=== PATIENT | male | born 1990 | race Caucasian/White ===

== ENCOUNTER 2024-09-11 04:07 | Emergency (ER) | payer BC, SELFPAY ==
[2024-09-11 04:12] VITALS: BMI 44.3
[2024-09-11 04:25] VITALS: BP 160/107; PULSE 89; RESP 20; TEMP 36.8; O2SAT 95
--- NOTE | 2024-09-11 04:26 | XR_ITS ---
Examination: Toes, left foot first digit 3 views Technique: Toes AP oblique lateral 3 views left foot first digit Date and time of exam: September 11, 2024 at 0449 hours INDICATIONS: Injury to the foot today, foot pain FINDINGS: Adequate bone density No acute fracture No dislocation IMPRESSION: No acute fracture
[2024-09-11] MEDS: oxyCODONE/APAP 5/325 TABLET 1 TAB PO (04:51)
--- NOTE | 2024-09-11 05:52 | PD.EDRME ---
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 Patient has broken that toe twice in the past. Chief Complaint: Ankle/Foot Injury Time Seen by Provider: 09/11/24 04:23 Vital signs: Vital Signs Temperature 98.2 F 09/11/24 04:25 Pulse Rate 89 09/11/24 04:25 Respiratory Rate 20 09/11/24 04:25 Blood Pressure 160/107 H 09/11/24 04:25 Pulse Oximetry (%) 95 09/11/24 04:25 Oxygen Delivery Method Room Air 09/11/24 04:25 Vital signs reviewed by provider: Yes
--- NOTE | 2024-09-11 06:26 | EDNOTE_ITS ---
Lower Extremity Injury RME/HPI General Chief Complaint: Ankle/Foot Injury Stated Complaint: LT FOOT PAIN Time Seen by Provider: 09/11/24 04:23 Arrival date/time: 09/11/24 04:07 Limitations: no limitations RME / HPI RME / HPI Narrative: 09/11/24 04:07 34M with history of HTN presents to ED with L big toe/foot pain after he accidentally injured it while dealing with an aggressive patient. Patient has broken that toe twice in the past. 09/11/24 06:26 34-year-old male with past medical history of hypertension presents for evaluation of left great toe pain following an injury at work that occurred approximately 12 hours prior to evaluation. 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 Patient endorses sharp, nonradiating left foot pain in the interspace between his great toe and left foot first digit. Patient notes 2 prior fractures of his left great toe metatarsal approximately 1 year ago. Patient denies prior surgery on his left foot and states his previous injuries healed well with conservative management in an orthopedic boot. Patient denies head trauma, LOC, numbness, weakness, tingling, swelling, ecchymosis. Patient denies additional injury. Patient was ambulatory immediately following the incident. Johny Gallegos PA-C. MD complaint: foot injury Onset (ago): hour(s) Injury: Left: foot and toes (Left great toe.) Type of Injury: blunt Place: work Relieving factors: nothing Exacerbating factors: nothing Context: fall Associated symptoms: ambulatory Other symptoms: none Related Data Home Medications ?Medication ?Instructions ?Recorded ?Confirmed albuterol sulfate 90 mcg/actuation 2 puff inhalation Q ID PRN sob 08/16/20 10/13/23 aerosol inhaler hydrochlorothiazide 12.5 mg capsule 12.5 mg PO QDAY 10/13/23 omeprazole magnesium 20 mg 20 mg PO QDAY PRN Acid Refl ux 10/13/23 10/13/23 tablet,delayed release (Prilosec OTC) Previous Rx's ?Medication ?Instructions ?Recorded losartan 25 mg tablet 50 mg (2 x 25 mg) PO BID #60 tabs 10/16/23 metoprolol succinate 25 mg 50 mg (2 x 25 mg) PO QDAY # 30 tabs 10/16/23 tablet,extended release 24 hr hydrocodone 5 mg-acetaminophen 325 1 tab PO Q8H PRN pa in #10 tabs 10/31/23 mg tablet Allergies Allergy/AdvReac Type Severity Reaction Status Date / Time Penicillins Allergy Intermediate hives Verified 09/11/24 04:12 amoxicillin Allergy Hives Verified 09/11/24 04:12 Review of Systems Constitutional Constitutional: Denies body ache(s), Denies chills, Denies fever(s), Denies frequent falls and Denies headache(s) Eyes Eyes: Denies blurry vision and Denies change in vision ENT Ears, Nose, Mouth, and Throat: Denies otalgia, Denies headache(s), Denies neck pain and Denies nose pain Cardiovascular Cardiovascular: Denies chest pain, Denies dyspnea and Denies leg edema Respiratory Respiratory: Denies cough, Denies dyspnea and Denies wheezing Gastrointestinal Gastrointestinal: Denies abdominal pain, Denies nausea and Denies vomiting Genitourinary Genitourinary: Denies dysuria and Denies hematuria Musculoskeletal Musculoskeletal: Reports abnormal gait, Reports arthralgias (Left great toe.), Denies back pain, Denies deformity, Denies neck pain, Denies numbness, Denies stiffness and Denies tingling Integumentary/Breasts Skin/Breast: Denies lesions and Denies rash Neurologic Neurologic: Reports abnormal gait, Denies frequent falls, Denies headache(s), Denies numbness and Denies tingling Allergic/Immunologic Allergic/Immunologic: Denies wheezing Past Medical History Past Medical History NEUROLOGIC: Negative Neurological Disorders CARDIAC: Positive Cardiac Disorders and Hypertension; Negative Congestive Heart Failure RESPIRATORY: Positive Asthma; Negative Chronic Obstructive Pulmonary Disease (COPD) GASTROINTESTINAL: Positive Pancreatitis; Negative Gastrointestinal Disorders, Hepatitis, Colorectal Cancer or Gastroesophageal Reflux Disease GENITOURINARY: Negative Genitourinary Disorders, Renal Disease or Prostate Cancer REPRODUCTIVE: Negative Breast Cancer or Testicular Cancer MUSCULOSKELETAL: Negative Musculoskeletal Disorders or Bone Cancer ENDOCRINE: Negative Endocrine Disorders, Diabetes Mellitus Type 1 or Diabetes Mellitus Type 2 HEMATOLOGIC: Negative Blood Disorders or Sickle Cell Disease OTHER HISTORY: Negative Autoimmune Disease, Blood Transfusions, Anesthesia Reactions, Organ Transplant, MRSA, VRSA, Vancomycin-Resistant Enterococci, Human Immunodeficiency Virus (HIV), Chicken Pox, Measles, Mumps, Rubella (Japanese Measles), Pertussis, Clostridium Difficile, Cancer, Breast Cancer, Cervical Cancer, Colorectal Cancer, Lung Cancer, Prostate Cancer or Testicular Cancer Family History FAMILY HISTORY: Positive Family Cancer; Negative Family Psychiatric Problems, Family Respiratory Disorders, Family Cardiac Disorders, Family Gastrointestinal Problems, Family Surgery or Family Anesthesia Reaction Surgical History SURGICAL: Positive Abdominal Surgery; Negative Cardiac Surgery, Endocrine Surgery, Ear Surgery, Nephrectomy, Joint Replacement, Neurologic Surgery, Vasectomy or Organ Transplant Social History SMOKING STATUS: Current every day smoker SECOND HAND EXPOSURE: No ED Exam General Limitations: Present no limitations General appearance: Present alert and in no apparent distress Head Head exam: Present atraumatic and normocephalic Eye Eye exam: Present normal appearance and EOMI ENT ENT exam: Present normal oropharynx and mucous membranes moist Neck Neck exam: Present normal inspection and full ROM Chest Chest inspection: Present normal inspection and symmetric chest wall rise Respiratory Respiratory exam: Absent respiratory distress or wheezes Cardiovascular Cardiovascular exam: Present regular rate and +S1 Abdominal Exam Abdominal exam: Present soft; Absent distention Extremities Exam Extremities exam: Present normal inspection and full ROM; Absent tenderness Expanded Lower Extremity Exam Lower leg exam: Present normal inspection and full ROM Ankle exam: Present normal inspection and full ROM Foot/toe exam: Present normal inspection, full ROM, tenderness and swelling Gait: observed and normal Back Exam Back exam: Present normal inspection; Absent full ROM Neurological Exam Neurological exam: Present alert and normal gait Psychiatric Psychiatric exam: Present normal affect Skin Skin exam: Present warm, dry and intact Course Quality Measures none Orders Category Date Time Status XR toe LT min 2V Stat Exams 09/11/24 04:26 Taken HYDROcodone*/APAP 7.5/325 [[place] 7.5/325] Med 09/11/24 04:26 Discontinued 1 tab PO X1 ONE HYDROcodone/APAP 10/325 [[place] 10/325] Med 09/11/24 07:03 Discontinued 1 tab PO X1 ONE Ibuprofen Tab [Motrin Tab] Med 09/11/24 07:03 Discontinued 800 mg PO X1 ONE Ketorolac Inj [Toradol Inj] Med 09/11/24 06:52 Discontinued 30 mg IM X1 ONE oxyCODONE/APAP 5/325 [Percocet 5/325] Med 09/11/24 04:29 Discontinued 1 tab PO X1 ONE Vital Signs Vital signs: Vital Signs Temperature 98.2 F 09/11/24 04:25 Pulse Rate 89 09/11/24 04:25 Respiratory Rate 20 09/11/24 04:25 Blood Pressure 160/107 H 09/11/24 04:25 Pulse Oximetry (%) 95 09/11/24 04:25 Oxygen Delivery Method Room Air 09/11/24 04:25 Pulse ox 95% on room air, within normal limits. Extremity Injury, Lower MDM Narrative MDM Narrative:: 34-year-old male presents for evaluation of left great toe pain following an injury at work. Patient's had multiple fractures of his left great toe which healed with conservative treatment. No gross neurovascular changes. Preliminary x-ray read shows no acute fracture or dislocation. Patient's pain somewhat improved following analgesics in department. Advised patient to rest, elevate, ice for up to 15 minutes at a time and follow-up with primary care within the next week for reevaluation. Advised patient to follow-up with outpatient Ortho if his symptoms do not improve within the next several days. Patient stable at time of discharge. Patient data External records reviewed:: [facility] previous records Clinical information provided by:: patient Social determinants that could affect healthcare access:: none Patient has the following chronic illnesses:: Hypertension. How is presenting disease/condition affected by chronic disease/condition?: uneffected by Evaluation data The following diagnostics were reviewed and interpreted by me:: radiology exam(s) Lab and/or radiology exams considered but not ordered:: Considered not ordered. Interpretation Summary: Left foot x-ray with bony calcification at first metatarsal. No acute fracture or dislocation. Medications / Prescriptions Medications or Prescriptions considered but not ordered:: Rx given. Medication administrations:: Medication Administration History Discontinued Medications Hydrocodone Bitart/Acetaminophen (Hydrocodone/Apap 7.5/325 Tablet) 1 tab PO X1 ONE Stop: 09/11/24 04:27 Last Admin: 09/11/24 04:42 Dose: Not Given Documented By: Non-Admin Reason: Cancelled by Provider Hydrocodone Bitart/Acetaminophen (Hydrocodone/Apap 10/325 Tab) 1 tab PO X1 ONE Stop: 09/11/24 07:04 Ibuprofen (Ibuprofen Tab 400 Mg Tablet) 800 mg PO X1 ONE Stop: 09/11/24 07:04 Ketorolac Tromethamine (Ketorolac Inj 60 Mg/2 Ml Vial) 30 mg IM X1 ONE Stop: 09/11/24 06:53 Last Admin: 09/11/24 07:03 Dose: Not Given Documented By: NANDA Non-Admin Reason: Cancelled by Provider Oxycodone/Acetaminophen (Oxycodone/Apap 5/325 Tablet) 1 tab PO X1 ONE Stop: 09/11/24 04:30 Last Admin: 09/11/24 04:51 Dose: 1 tab Documented By: NANDA Rx given. Consultations Consultation(s) initiated? (list below): No Diagnosis Extremity Injury, Lower Differential Diagnosis: ankle sprain and strain, puncture wound of foot, fracture of toe and other (Metatarsal fracture, metatarsal dislocation, foot sprain.) Most likely diagnosis given after review of the tests above:: Left great toe sprain. Admission Indicated Admission indicated?: not indicated Admission Request Was there a request for admission?: No Disposition Plan Disposition Plan: Discharge Discharge Attestation Discharge Attestation: The patient and all family members were given an opportunity to ask questions and understood the discharge instructions. Discharge instructions specifically effects, indications for sooner follow up or return to the emergency department, and the expected course of current diagnosis. Patient condition: Stable Discharge Plan Plan Patient Disposition: HOME (Self Care) Discharge Disposition comment: stable Prescriptions/Referrals Prescriptions/Med Rec: No Action albuterol sulfate 90 mcg/actuation HFA aerosol inhaler 2 puff INHALATION QID PRN (Reason: sob) hydrocodone-acetaminophen 5-325 mg tablet 1 tab PO Q8H MDD 3 tabs/day PRN (Reason: pain) Qty: 10 0RF hydrochlorothiazide 12.5 mg capsule 12.5 mg PO QDAY Patient Comments: TAKE ONE CAPSULE BY MOUTH EVERY MORNING A DIURETIC omeprazole magnesium [Prilosec OTC] 20 mg Tablet,Delayed Release (Dr/Ec) 20 mg PO QDAY PRN (Reason: Acid Reflux) losartan 25 mg Tablet 50 mg PO BID Qty: 60 1RF metoprolol succinate 25 mg Tablet Extended Release 24 Hr 50 mg PO QDAY Qty: 30 1RF Referrals: Mika Sumner[facility] [Primary Care Provider] - In 1 week Problem List Clinical Impression: Pain of left great toe Patient/Caregiver Discharge Instructions Education Materials: Treating?Strains and Sprains, Medicine for Pain, ED RICE Additional Instructions: Rest, ice for up to 15 minutes at a time, elevate above the heart for the next several days every 6 hours. You may return to work tomorrow but plan on light duty. Take Tylenol and/or ibuprofen every 6 hours as needed for pain. You may use Ortho boot for the next several days. Follow-up with primary care within the next week for reevaluation and possible repeat imaging. Consider outpatient Ortho follow-up if your symptoms do not improve within the next several days. Return to the ED if your symptoms worsen or change. Print Language: Portuguese Stand Alone Forms: Cherise Award Info., Patient Portal Info Letter PA/TELMA Supervising Physician PA/TELMA Supervising Physician: Dr. Adkins
[2024-09-11 07:07] VITALS: BP 155/92; PULSE 83; RESP 18; TEMP 36.7; O2SAT 96
[2024-09-11] MEDS: IBUPROFEN TAB 400 MG TABLET 800 MG PO (07:13)
[2024-09-11] MEDS: HYDROcodone/APAP 10/325 TAB PO (07:13)
== END 2024-09-11 07:15 | disposition home or self-care (01) ==
PROVIDERS: Emergency Provider Emergency Medicine; PCP Family Medicine
DX: M79.675 Pain in left toe(s) (principal)
CPT/HCPCS: 73660; 99283; A9270

== ENCOUNTER 2024-09-12 14:06 | Emergency (ER) | payer BC, SELFPAY ==
[2024-09-12 14:08] VITALS: BMI 44.3
[2024-09-12 14:11] VITALS: BP 157/77; PULSE 110; RESP 18; TEMP 36.7; O2SAT 97
--- NOTE | 2024-09-12 14:12 | PD.EDANKLE ---
Lower Extremity Injury RME/HPI General Chief Complaint: Ankle/Foot Injury Stated Complaint: LEFT FOOT PAIN Time Seen by Provider: 09/12/24 14:09 Arrival date/time: 09/12/24 14:06 34-year-old male presents to the emerged part today for complaints of left foot pain patient reports that he injured himself Limitations: no limitations Related Data Home Medications ?Medication ?Instructions ?Recorded ?Confirmed albuterol sulfate 90 mcg/actuation 2 puff inhalation QID PRN sob 08/16/20 10/13/23 aerosol inhaler hydrochlorothiazide 12.5 mg capsule 12.5 mg PO QDAY 08/11/23 10/13/23 omeprazole magnesium 20 mg 20 mg PO QDAY PRN Acid Reflux 10/13/23 10/13/23 tablet,delayed release (Prilosec OTC) Previous Rx's ?Medication ?Instructions ?Recorded losartan 25 mg tablet 50 mg (2 x 25 mg) PO BID #60 tabs 10/16/23 metoprolol succinate 25 mg 50 mg (2 x 25 mg) PO QDAY #30 tabs 10/16/23 tablet,extended release 24 hr hydrocodone 5 mg-acetaminophen 325 1 tab PO Q8H PRN pain #10 tabs 10/31/23 mg tablet hydrocodone 5 mg-acetaminophen 325 1 tab PO BID PRN pain #20 tabs 09/12/24 mg tablet ibuprofen 800 mg tablet 800 mg PO TID PRN pain #30 tabs 09/12/24 Allergies Allergy/AdvReac Type Severity Reaction Status Date / Time Penicillins Allergy Intermediate hives Verified 09/12/24 14:07 amoxicillin Allergy Hives Verified 09/12/24 14:07 Review of Systems Review of Systems Systems Reviewed: All systems reviewed, normal except as documented Constitutional Constitutional: Reports system reviewed and no additional complaints, except as documented, Denies fever(s) and Denies headache(s) Eyes Eyes: Reports system reviewed and no additional complaints, except as documented and Denies blurry vision ENT Ears, Nose, Mouth, and Throat: Reports system reviewed and no additional complaints, except as documented, Denies headache(s), Denies nasal congestion and Denies nasal discharge Cardiovascular Cardiovascular: Reports system reviewed and no additional complaints, except as documented, Denies chest pain and Denies dyspnea Respiratory Respiratory: Reports system reviewed and no additional complaints, except as documented, Denies chest congestion, Denies cough and Denies dyspnea Gastrointestinal Gastrointestinal: Reports system reviewed and no additional complaints, except as documented and Denies abdominal pain Musculoskeletal Musculoskeletal: Reports system reviewed and no additional complaints, except as documented, Reports abnormal gait, Reports arthralgias, Denies deformity and Denies joint swelling Integumentary/Breasts Skin/Breast: Reports system reviewed and no additional complaints, except as documented and Denies rash Neurologic Neurologic: Reports system reviewed and no additional complaints, except as documented, Reports as per HPI, Reports abnormal gait and Denies headache(s) Past Medical History Past Medical History NEUROLOGIC: Negative Neurological Disorders CARDIAC: Positive Cardiac Disorders and Hypertension; Negative Congestive Heart Failure RESPIRATORY: Positive Asthma; Negative Chronic Obstructive Pulmonary Disease (COPD) GASTROINTESTINAL: Positive Pancreatitis; Negative Gastrointestinal Disorders, Hepatitis, Colorectal Cancer or Gastroesophageal Reflux Disease GENITOURINARY: Negative Genitourinary Disorders, Renal Disease or Prostate Cancer REPRODUCTIVE: Negative Breast Cancer or Testicular Cancer MUSCULOSKELETAL: Negative Musculoskeletal Disorders or Bone Cancer ENDOCRINE: Negative Endocrine Disorders, Diabetes Mellitus Type 1 or Diabetes Mellitus Type 2 HEMATOLOGIC: Negative Blood Disorders or Sickle Cell Disease OTHER HISTORY: Negative Autoimmune Disease, Blood Transfusions, Anesthesia Reactions, Organ Transplant, MRSA, VRSA, Vancomycin-Resistant Enterococci, Human Immunodeficiency Virus (HIV), Chicken Pox, Measles, Mumps, Rubella ([place] Measles), Pertussis, Clostridium Difficile, Cancer, Breast Cancer, Cervical Cancer, Colorectal Cancer, Lung Cancer, Prostate Cancer or Testicular Cancer Family History FAMILY HISTORY: Positive Family Cancer; Negative Family Psychiatric Problems, Family Respiratory Disorders, Family Cardiac Disorders, Family Gastrointestinal Problems, Family Surgery or Family Anesthesia Reaction Surgical History SURGICAL: Positive Abdominal Surgery; Negative Cardiac Surgery, Endocrine Surgery, Ear Surgery, Nephrectomy, Joint Replacement, Neurologic Surgery, Vasectomy or Organ Transplant Social History SMOKING STATUS: Never smoker SECOND HAND EXPOSURE: No ED Exam General Limitations: Present no limitations General appearance: Present alert and in no apparent distress Head Head exam: Present atraumatic Eye Eye exam: Present normal appearance, PERRL and EOMI ENT ENT exam: Present normal exam, normal oropharynx and mucous membranes moist Neck Neck exam: Present normal inspection, full ROM and trachea midline Chest Chest inspection: Present normal inspection and symmetric chest wall rise Respiratory Respiratory exam: Present normal lung sounds bilaterally Cardiovascular Cardiovascular exam: Present regular rate, normal rhythm and normal heart sounds Abdominal Exam Abdominal exam: Present soft and normal bowel sounds Extremities Exam Extremities exam: Present full ROM, tenderness (Left foot pain), normal capillary refill and joint swelling; Absent pedal edema or calf tenderness Back Exam Back exam: Present normal inspection and full ROM Neurological Exam Neurological exam: Present alert, oriented X3, CN II-XII intact, normal gait and reflexes normal; Absent motor sensory deficit Psychiatric Psychiatric exam: Present normal affect and normal mood Skin Skin exam: Present warm, dry, intact and normal color Course Quality Measures none Vital Signs Vital signs: Vital Signs Temperature 98.0 F 09/12/24 14:11 Pulse Rate 110 H 09/12/24 14:11 Respiratory Rate 18 09/12/24 14:11 Blood Pressure 157/77 H 09/12/24 14:11 Pulse Oximetry (%) 97 09/12/24 14:11 Oxygen Delivery Method Room Air 09/12/24 14:11 O2 saturation 97% on room air within normal limits Extremity Injury, Lower MDM Narrative MDM Narrative:: 34-year-old male with past medical history of hypertension presents for evaluation of left great toe pain following an injury at work that occurred yesterday. 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 Patient was evaluated here yesterday had imaging reports pain is persistent I viewed patient's imaging patient has no fracture Patient reports he been taking ibuprofen but it does not relieve his pain patient reports that he has a orthopedic boot which has been using Patient discharged home in no distress to follow-up with primary care doctor in the next 24 to 48 hours and for any worsening symptoms to return to the ER immediately Patient data External records reviewed:: [facility] [place] previous [place] Clinical information provided by:: patient Social determinants that could affect healthcare access:: none Patient has the following chronic illnesses:: She history How is presenting disease/condition affected by chronic disease/condition?: caused by Evaluation data The following diagnostics were reviewed and interpreted by me:: other (specify) (N/A) Lab and/or radiology exams considered but not ordered:: N/A Interpretation Summary: N/A Medications / Prescriptions Medications or Prescriptions considered but not ordered:: Given Medication administrations:: Given Rx Consultations Consultation(s) initiated? (list below): No Diagnosis Extremity Injury, Lower Differential Diagnosis: ankle sprain and strain and ankle fracture Most likely diagnosis given after review of the tests above:: Foot sprain Admission Indicated Admission indicated?: not indicated Admission Request Was there a request for admission?: No Disposition Plan Disposition Plan: Discharge Discharge Attestation Discharge Attestation: The patient and all family members were given an opportunity to ask questions and understood the discharge instructions. Discharge instructions specifically effects, indications for sooner follow up or return to the emergency department, and the expected course of current diagnosis. Patient condition: Stable Discharge Plan Plan Patient Disposition: HOME (Self Care) Discharge Disposition comment: stable Prescriptions/Referrals Prescriptions/Med Rec: New ibuprofen 800 mg tablet 800 mg PO TID PRN (Reason: pain) Qty: 30 0RF hydrocodone-acetaminophen 5-325 mg tablet 1 tab PO BID MDD 10 PRN (Reason: pain) Qty: 20 0RF No Action albuterol sulfate 90 mcg/actuation HFA aerosol inhaler 2 puff INHALATION QID PRN (Reason: sob) hydrocodone-acetaminophen 5-325 mg tablet 1 tab PO Q8H MDD 3 tabs/day PRN (Reason: pain) Qty: 10 0RF hydrochlorothiazide 12.5 mg capsule 12.5 mg PO QDAY Patient Comments: TAKE ONE CAPSULE BY MOUTH EVERY MORNING A DIURETIC omeprazole magnesium [Prilosec OTC] 20 mg Tablet,Delayed Release (Dr/Ec) 20 mg PO QDAY PRN (Reason: Acid Reflux) losartan 25 mg Tablet 50 mg PO BID Qty: 60 1RF metoprolol succinate 25 mg Tablet Extended Release 24 Hr 50 mg PO QDAY Qty: 30 1RF Problem List Clinical Impression: Pain of left great toe Patient/Caregiver Discharge Instructions Education Materials: ED Toe Sprain Additional Instructions: Please follow up with your primary care doctor in the next 24-48hrs for any worsening symptoms return here immediately Print Language: Polish Stand Alone Forms: Cherise Award Info., Patient Portal Info Letter PA/LEVERMAN Supervising Physician PA/TELMA Supervising Physician: Dr ponce
== END 2024-09-12 14:44 | disposition home or self-care (01) ==
PROVIDERS: Emergency Provider Emergency Medicine
DX: S99.922A Unspecified injury of left foot, initial encounter (principal); X58.XXXA Exposure to other specified factors, initial encounter; Y93.F9 Activity, other caregiving; Y92.239 Unspecified place in hospital as the place of occurrence of the external cause; Y99.0 Civilian activity done for income or pay
CPT/HCPCS: 99281; 99284